=== PATIENT | male | born 1955 | race Caucasian/White ===

== ENCOUNTER 2016-09-30 05:57 | Emergency (ER) | payer BC ==
[2016-09-30 06:05] VITALS: TEMP 98.2
[2016-09-30] MEDS ORDERED: LORazepam 2 MG/ML INJ IVP ONE (06:11)
[2016-09-30] MEDS ORDERED: CHLORDIAZEPOXIDE 25MG PREPK#6 BTL TAKEHOME ONE (06:14)
--- NOTE | 2016-09-30 06:14 | EDPHY ---
H & P Stated Complaint: ETOH withdrawals- sent from [facility] Time Seen by Provider: 09/30/16 06:11 HPI/ROS: Chief Complaint: Alcohol withdrawal, nausea, anxiety HPI: 61-year-old male presenting from the [facility] with symptoms of withdrawal. Patient states he had 7 rate shots plus some wine last night. His to come to the [facility] because he was feeling very anxious and nauseated. He has not vomited. States that he does not drink daily but occasionally does have some binge drinking behavior. Has had alcohol withdrawal symptoms in the past. Denies ever having a seizure. No chest pain or shortness of breath. No fevers or chills. No recent illness. Patient received nausea medication from EMS is feeling better. ROS: 10 point Review of Systems is negative except as noted in the HPI. PMH: None Medications: None Allergies: No known drug allergies Social History: No smoking, drinks alcohol about 3 times a week , no recreational drug use Family History: non-contributory Physical Exam: Gen: Awake, Alert, mildly tremulous HEENT: Nose: no rhinorrhea Eyes: PERRLA, EOMI Mouth: Moist mucosa Neck: Supple, no JVD Chest: nontender, lungs clear to auscultation Heart: S1, S2 normal, no murmur Abd: Soft, non-tender, no guarding Back: no CVA tenderness, no midline tenderness Ext: no edema, non-tender Skin: no rash Neuro: CN II-XII intact, Sensation grossly intact, Strength 5/5 in bilateral upper and lower extremities - Personal History Current Tetanus/Diphtheria Vaccine: Unsure Current Tetanus Diphtheria and Acellular Pertussis (TDAP): Unsure - Medical/Surgical History Hx Asthma: No Hx Chronic Respiratory Disease: No Hx Diabetes: No Hx Cardiac Disease: No Hx Renal Disease: No Hx Cirrhosis: No Hx Alcoholism: Yes Hx HIV/AIDS: No Other PMH: depression - Social History Smoking Status: Never smoked Constitutional: Initial Vital Signs Temperature (C) 36.8 C 09/30/16 06:04 Heart Rate 74 09/30/16 06:04 Respiratory Rate 20 09/30/16 06:04 Blood Pressure 140/89 H 09/30/16 06:04 O2 Sat (%) 94 09/30/16 06:04 O2 Delivery Mode Room Air Allergies/Adverse Reactions: No Known Allergies Allergy (Unverified 09/30/16 06:06) Home Medications: Medication Instructions Recorded NK [No Known Home Meds] 09/30/16 Medical Decision Making ED Course/Re-evaluation: Patient is improved after Ativan. He is resting comfortably. He is not tachycardic. He is not tremulous. He is medically cleared for the [facility]. - Data Points Medications Given: Discontinued Medications Lorazepam (Ativan Injection) 1 mg IVP EDNOW ONE Stop: 09/30/16 06:12 Last Admin: 09/30/16 06:14 Dose: 1 mg Departure - Departure Disposition: Home, Routine, Self-Care Clinical Impression: Alcohol withdrawal Condition: Good Instructions: Chlordiazepoxide (By mouth), Alcohol Withdrawal (ED) Additional Instructions: Please try to decrease your alcohol consumption. Return to the emergency depart for increasing tremors, nausea vomiting, headache , chest pain, shortness of breath, or any other concerns. Referrals: Jayy Levy MD [Medical Doctor] - As per Instructions
[2016-09-30 07:24] VITALS: BP 165/103; PULSE 106; RESP 16; O2SAT 96
== END 2016-09-30 07:56 | disposition home or self-care (01) ==
DX: F10.239 Alcohol dependence with withdrawal, unspecified (principal)
CPT/HCPCS: 96374; J2060